=== PATIENT | male | born 1950 | race Caucasian/White ===

== ENCOUNTER 2018-06-21 16:51 | Outpatient (CLI) | payer MEDICARE, OTHER, SELFPAY ==
--- NOTE | 2018-06-21 14:25 | DI.RAD_ITS ---
SYMPTOM/DIAGNOSIS: LEFT KNEE PAIN, M25.562 LEFT KNEE: 06/21/18 Four views were obtained. There is marked narrowing of the medial tibial femoral joint with subchondral sclerosis of the adjacent bones. There is mild medial subluxation of the femur on the tibia. Very prominent hypertrophic changes of the bones of the knee noted. 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
--- NOTE | 2018-06-21 14:46 | DI.RAD_ITS ---
SYMPTOM/DIAGNOSIS: RIGHT KNEE PAIN, M25.561 RIGHT KNEE: 06/21/18 Four views were obtained. There is marked narrowing of the medial tibial femoral cartilaginous joint space and to a lesser degree the lateral tibial femoral cartilaginous joint space. There is mild medial subluxation of the femur on the tibia. There are marked subchondral sclerotic changes at the medial tibial femoral joint. Very prominent hypertrophic changes are seen involving all of the joints of the knee. 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
== END 2018-06-21 17:11 ==
PROVIDERS: PCP Family Medicine; Visit Provider Family Medicine
DX: M25.561 Pain in right knee (principal); M17.11 Unilateral primary osteoarthritis, right knee; M25.562 Pain in left knee; M17.12 Unilateral primary osteoarthritis, left knee
CPT/HCPCS: 73562

== ENCOUNTER 2018-07-05 10:09 | Outpatient (CLI) | payer MEDICARE, OTHER, SELFPAY | END 2018-07-05 10:29 | PROVIDERS: PCP Family Medicine; Referring Provider Family Medicine; Visit Provider Orthopaedic Surgery | DX: M17.0 Bilateral primary osteoarthritis of knee (principal) | CPT/HCPCS: 99201; 99214; 73560 ==

== ENCOUNTER 2019-06-21 11:56 | Outpatient (CLI) | payer MEDICARE, OTHER, SELFPAY ==
[2019-06-21 12:55] LABS: Abs Immature Grans 0.02 k/cumm (0.0-0.09); Absolute Basophil Count 0.02 k/cumm (0.0-0.2); Absolute Lymphocyte Count 2.05 k/cumm (1.2-3.4); Absolute Monocyte Count 0.49 k/cumm (0.11-0.7); Absolute Neutrophil Count 3.46 k/cumm (1.2-6.7); Basophils % 0.3; Eosinophils % 1.6; HCT 47.9 % (40.0-50.0); HGB 16.2 g/dL (13.5-17.5); Immature Grans % 0.3; Lymphocytes % 33.4; Mean Corp. HGB Concentration 33.8 g/dL (32.0-36.0); Mean Corpuscular Hemoglobin 31.9 pg (27.0-33.0); Mean Corpuscular Volume 94.3 fL (80-95); Mean Platelet Volume 10.1 fL (8.0-11.0); Neutrophils % 56.4; Platelet Count 261 x1000/uL (130-400); RBC 5.08 m/cumm (4.50-6.00); White Blood Cell Count 6.14 k/cumm (4.4-10.8)
[2019-06-21 14:04] LABS: ALT 34 U/L (16-63); AST 20 U/L (15-37); Alkaline Phosphatase 85 U/L (46-116); Anion Gap 7.9 mmol/L (3-11); BUN 16 mg/dL (7-18); Bilirubin, Total 0.6 mg/dL (0.2-1.0); CO2 29.1 mmol/L (21.0-32.0); CREATININE 0.95 mg/dL (0.70-1.30); Calcium 8.9 mg/dL (8.5-10.1); Chloride 105 mmol/L (98-107); Glucose 89 mg/dL (70-100); Potassium 4.7 mmol/L (3.5-5.1); Sodium 142 mmol/L (136-145)
[2019-06-21 14:09] LABS: ESR 9 mm/hr (1-20)
== END 2019-06-21 12:16 ==
PROVIDERS: PCP Family Medicine; Visit Provider Internal Medicine
DX: R10.9 Unspecified abdominal pain (principal); R50.9 Fever, unspecified
CPT/HCPCS: 36415; 80053; 85652; 85025

== ENCOUNTER 2019-06-25 01:43 | Outpatient (CLI) | payer MEDICARE, OTHER, SELFPAY ==
--- NOTE | 2019-06-25 09:51 | DI.US_ITS ---
EXAM: US ABDOMEN CLINICAL HISTORY: abdominal pain, R10.9 TECHNIQUE: Ultrasound performed using standard protocol. COMPARISON: No exams were available for comparison FINDINGS: The liver is mildly enlarged and shows increased echogenicity and decreased through transmission, con sistent with mild fatty infiltration. The spleen is normal in size and appearance. There is no bili humza dilatation or evidence of gallstones. The pancreas, kidneys and aorta are unremarkable. There i s no ascites. IMPRESSION: Mildly enlarged fatty liver.
== END 2019-06-25 02:03 ==
PROVIDERS: PCP Family Medicine; Visit Provider Internal Medicine
DX: R10.9 Unspecified abdominal pain (principal); K76.0 Fatty (change of) liver, not elsewhere classified; R16.0 Hepatomegaly, not elsewhere classified
CPT/HCPCS: 76700

== ENCOUNTER 2020-06-09 03:42 | Outpatient (CLI) | payer MEDICARE, OTHER, SELFPAY ==
[2020-06-09 12:53] LABS: Albumin 3.7 g/dL (3.4-5.0); Alkaline Phosphatase 104 U/L (46-116); Anion Gap 6.9 mmol/L (3-11); BUN 22 mg/dL (7-18); Bilirubin, Total 0.5 mg/dL (0.2-1.0); CO2 29.1 mmol/L (21.0-32.0); CREATININE 0.99 mg/dL (0.70-1.30); Calcium 8.3 mg/dL (8.5-10.1); Chloride 103 mmol/L (98-107); Glucose 107 mg/dL (74-106); Potassium 4.3 mmol/L (3.5-5.1); Sodium 139 mmol/L (136-145); Total Protein 6.8 g/dL (6.4-8.2)
[2020-06-09 13:09] LABS: ALT 28 U/L (16-63); AST 23 U/L (15-37)
== END 2020-06-09 04:02 ==
PROVIDERS: PCP Family Medicine; Visit Provider Family Medicine
DX: L71.8 Other rosacea (principal)
CPT/HCPCS: 36415; 80053

== ENCOUNTER 2021-11-20 21:41 | Outpatient (REF) | payer MEDICARE, OTHER, SELFPAY ==
[2021-11-22 10:57] LABS: COVID-19 RT-PCR UVMMC Result Negative (Negative)
== END 2021-11-20 21:42 | disposition home or self-care (01) ==
LOC: LBN 21:41
PROVIDERS: PCP Family Medicine; Visit Provider Physician Assistant Medical
DX: Z20.822 Contact with and (suspected) exposure to COVID-19 (principal); R05.8 Other specified cough
CPT/HCPCS: U0003

== ENCOUNTER 2022-03-26 18:53 | Outpatient (CLI) | payer MEDICARE, OTHER, SELFPAY ==
[2022-03-26 17:02] LABS: Abs Immature Grans 0.06 10^3/uL (0.0-0.06); Absolute Basophil Count 0.04 10^3/uL (0.0-0.2); Absolute Eosinophil Count 0.14 10^3/uL (0.0-0.7); Absolute Lymphocyte Count 2.34 10^3/uL (1.2-3.4); Absolute Monocyte Count 0.89 10^3/uL (0.1-0.8); Absolute Neutrophil Count 4.99 10^3/uL (1.2-6.7); Basophils % 0.5; Eosinophils % 1.7; HCT 45.5 % (40.0-50.0); HGB 15.6 g/dL (13.5-17.5); Immature Grans % 0.7; Lymphocytes % 27.7; MCHC 34.3 % (32.0-36.0); MCV 93 fL (80-95); MPV 10.1 fL (8.0-11.0); Monocytes % 10.5; Neutrophils % 58.9; Platelet Count 244 10^3/uL (130-400); RBC 4.87 10^6/uL (4.36-5.78); RDW 12.2 % (11.8-14.1); RDW-SD 42.4 fL; WBC 8.46 10^3/uL (4.4-10.8)
[2022-03-26 18:32] LABS: ALT 33 U/L (16-63); AST 23 U/L (15-37); Albumin 3.7 g/dL (3.4-5.0); Alkaline Phosphatase 96 U/L (46-116); Anion Gap 7.6 mmol/L (3-11); BUN 20 mg/dL (7-18); Bilirubin, Total 0.3 mg/dL (0.2-1.0); CO2 28.4 mmol/L (21.0-32.0); CREATININE 0.8 mg/dL (0.70-1.30); Chloride 105 mmol/L (98-107); Glucose 80 mg/dL (74-106); Lipase 78 U/L (73-393); Potassium 4.4 mmol/L (3.5-5.1); Sodium 141 mmol/L (136-145); Total Protein 7.1 g/dL (6.4-8.2)
== END 2022-03-26 18:54 | disposition home or self-care (01) ==
LOC: LBO 18:56
PROVIDERS: PCP Family Medicine; Visit Provider Physician Assistant
DX: R10.13 Epigastric pain (principal)
CPT/HCPCS: 36415; 80053; 83690; 85025

== ENCOUNTER → 2022-04-06 02:19 | Outpatient (CLI) | payer MEDICARE, OTHER, SELFPAY ==
--- NOTE | 2022-04-06 06:45 | DI.US_ITS ---
Exam(s) US ABDOMEN EXAM: US ABDOMEN INDICATION: epigastric pain, bloating, gas, R10.13 COMPARISON: US US ABDOMEN from 06/25/2019 TECHNIQUE: Ultrasound abdomen performed using standard protocol FINDINGS: Abdominal ultrasound was performed according to the usual protocol. The liver is normal in size and shape. No focal hepatic lesion seen. There is no evidence of cholelithiasis or biliary dilatation. No gallbladder wall thickening or peric holecystic fluid collection. Portal venous flow is hepatopetal. Pancreas appears intact as visualized. Spleen is unremarkable in appearance with no focal lesion. Kidneys are normal in size and shape. No renal mass, hydronephrosis, or nephrolithiasis. Abdominal aorta and IVC are of normal diameter. IMPRESSION: Negative abdominal ultrasound .
== END ==
PROVIDERS: PCP Family Medicine; Visit Provider Physician Assistant
DX: R10.13 Epigastric pain (principal)
CPT/HCPCS: 76700

== ENCOUNTER → 2022-05-07 00:32 | Outpatient (CLI) | payer MEDICARE, OTHER, SELFPAY ==
--- NOTE | 2022-05-07 07:00 | DI.CT_ITS ---
Exam(s) CT ABDOMEN PELVIS W EXAM: CT ABDOMEN PELVIS W CLINICAL HISTORY: epigastric abd pain,epigastric pain,r10.13,r19.8 TECHNIQUE: COMPARISON: No exams were available for comparison FINDINGS: CT examination of the abdomen and pelvis was performed with bolus infusion of 100 cc of Omnipaque 350 . Images obtained through the lung bases are unremarkable. The liver appears normal with no evidence of a focal mass. Spleen is unremarkable in appearance.. Gallbladder and bile ducts are unremarkable. Pancreas is unremarkable in appearance. Adrenals appear normal bilaterally. Kidneys appear normal with no evidence of renal mass, hydronephrosis, or nephrolithiasis. Unremarkab le bladder. There is no evidence of abdominal or pelvic adenopathy. Abdominal aorta is of normal diameter and no abnormality is seen involving major visceral branches.. Appendix is normal. No evidence diverticulitis or bowel obstruction. No significant abdominal wall hernia seen. Impression: Negative CT examination of the abdomen and pelvis. RADIATION DOSE DELIVERED: 1,251.69mGy.cm Total DLP 1,251.69mGy.cm Total DLP !Error CTDIvol DATA REPOSITORY: All CT scans at this facility are submitted to the National Radiology Data Registry (NRDR) Dose Index Registry (DIR) with the [employer] (ACR). RADIATION OPTIMIZATION: All CT scans at this facility use at least one of these dose optimization te chniques: automated exposure control; mA and/or kV adjustment per patient size (includes targeted exa ms where dose is matched to clinical indication); or iterative reconstruction.
[2022-05-07] MEDS: Barium Sulfate 2% W/V-Berry Smoothie 450 ML BTL PO ×2 (08:44→08:45)
[2022-05-07 08:56] LABS: CREATININE 0.9 mg/dL (0.70-1.30); Estimated GFR 91.88 (mL/min/1.73m2)
[2022-05-07] MEDS: Omnipaque 350 MG/ML 500 ML BTL-Imaging package IJ (10:48)
[2022-05-07] MEDS: Normal Saline Flush 10 ML SYR IVP (10:48)
== END ==
PROVIDERS: PCP Family Medicine; Visit Provider Family Medicine
DX: R10.13 Epigastric pain (principal); R19.8 Other specified symptoms and signs involving the digestive system and abdomen
CPT/HCPCS: 74177; 82565

== ENCOUNTER 2022-07-29 19:44 | Emergency (ER) | payer MEDICARE, OTHER, SELFPAY ==
[2022-07-29 19:52] VITALS: BP 136/73; PULSE 62; RESP 16; TEMP 36.5; O2SAT 97
--- NOTE | 2022-07-29 20:04 | ED.GENADUL_ITS ---
Discharge Plan Disposition Patient Disposition: Home Condition: Improving Discharge Details Chief Complaint: Sorethroat Clinical Impression: Pharyngitis, acute Primary Care Provider: Radha Thomas ED Provider: Kwame Pandey Home Meds and New Rx's Prescriptions: No Action No Known Home Meds Discharge Instructions Instructions: Pharyngitis (ED) Additional Instructions: May use lozenges, popsicles and liberal sips of fluids to maintain hydration and soothe your sore throat. Your rapid strep test and COVID test were negative. A confirming COVID test has been sent to the lab, you will receive a call if it is positive. Return to the ER for any acute concern. Medical Decision Making 72-year-old male presents from home with hours of onset acute sore throat. No other symptoms. Was not sure of his home COVID test results. In the ER rapid strep and viral swab obtained. Rapid strep test negative and rapid COVID test and influenza negative. Patient appropriate for discharge to home HPI General Mode of arrival: ambulatory . Date/Time Provider Initiated Documentation: 07/29/22 19:51 . Limitations to Documentation: no limitations . Information obtained by: patient . History of Present Illness 72 year old M presents to the emergency department with the chief complaint of Sore throat, described as moderate, Quality is described as dull and constant, and is localized to the mouth. Patient started experiencing this hour(s) and it has been constant. No relieving factors improve symptom(s), No exacerbating factors reported . Patient notes denies cough and fever/chills. Patient did receive the following treatments prior to arrival, none Related Data Home Medications Medication Instructions Recorded Confirmed Unknown [No Known Home Meds] 07/29/22 07/29/22 Allergies Allergy/AdvReac Type Severity Reaction Status Date / Time No Known Allergies Allergy Verified 07/29/22 19:58 General Stated Complaint: Sorethroat KAIDEN: 4 Review of Systems Narrative: 6 systems reviewed and otherwise negative PFSH All Active Problems (Updated 07/29/22 @ 20:35 by Kwame Pandey MD) Pharyngitis, acute (Acute) COVID-19 (Acute) 06/01/22 positive screening. 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) Rosacea (Acute) of face Seborrheic dermatitis (Acute 12/08/16) Epigastric pain (Acute) Penile adhesion, acquired (Acute) Medical History Carpal tunnel syndrome, bilateral Diverticula of colon (06/09/16) Spermatocele (02/03/16) Surgical History History of arthroscopy Status post tonsillectomy Family History Mother , age 82 Stroke Father , age 88 Personal history of malignant neoplasm Skin Dementia Sister Dementia Sister Dementia Social History Smoking/Tobacco Use Status: Never Smoking risk assessment performed?: Yes Alcohol Intake: never Drug use: Never Caregiver/Support person: No Household members: spouse Housing: house Number of Children: 2 number of grandchildren: 4 Communication Needs: None Do you need help understanding health information?: Rarely current occupation: works in [employer] Pets and animals: No Sexually active: Yes Do you think of yourself as: straight/heterosexual Current gender identity: male What is your relationship status?: How often do you talk on the phone with friends or family?: once per week How often do you get together with friends or relatives?: once per week Do you belong to any clubs or organized social groups?: no Panel score (0-1 are the most socially isolated patients): 1 Special mirella needs: No Seatbelt use: always Helmet use: Yes 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 Pleasant, well groomed, interactive. HEAD: Normocephalic, atraumatic ENT: Mucous membranes moist, oropharynx unremarkable, tympanic membranes clear bilaterally external ear exam unremarkable EYES: PERRL, EOMI NECK: Full ROM, no ASHIA, no menigismus CHEST/RESP: Nontender, clear to auscultation bilateral, no wheeze/rhonchi/rales CARDIOVASCULAR: RRR, no murmur, rub elijah. 2+ Rad pulse bilateral EXT: Full ROM, no edema, no rash Neuro: Grossly normal neurologic exam, conversant, interactive. Psych: Speech fluent, thoughts congruent, affect normal Course Vital Signs Vital signs: Vital Signs Temperature 36.5 C 07/29/22 19:52 Pulse 62 07/29/22 19:52 Respiratory Rate 16 07/29/22 19:52 Blood Pressure 136/73 07/29/22 19:52 Pulse Oximetry 97 07/29/22 19:52 Temperature 36.5 C 07/29/22 19:52 Temperature Source Temporal Artery Scan 07/29/22 19:52 Pulse 62 07/29/22 19:52 Respiratory Rate 16 07/29/22 19:52 Respiratory Effort 07/29/22 19:52 Blood Pressure 136/73 07/29/22 19:52 Blood Pressure Position Sitting 07/29/22 19:52 Pulse Oximetry 97 07/29/22 19:52 Oxygen Delivery Method Room Air 07/29/22 19:52 Oxygen Flow Rate 0 07/29/22 19:52 Pain Level 0 07/29/22 19:52
[2022-07-31 11:08] LABS: COVID-19 RT-PCR UVMMC Result Negative (Negative)
--- NOTE | 2022-08-01 09:06 | NUR.NOTE ---
left message for patient to call ED for covid results
== END 2022-07-29 21:11 | disposition home or self-care (01) ==
PROVIDERS: Physician Assistant; Emergency Provider Emergency Medicine; PCP Family Medicine
DX: J02.9 Acute pharyngitis, unspecified (principal); Z20.822 Contact with and (suspected) exposure to COVID-19
CPT/HCPCS: 87880; 99282; U0003; 87081

== ENCOUNTER 2022-10-20 18:45 | Emergency (ER) | payer MEDICARE, OTHER, SELFPAY ==
[2022-10-20] VITALS (45 sets, daily range): BP systolic 126–149; BP diastolic 70–88; PULSE 48–76; RESP 10–22; TEMP 36.9; O2SAT 93–99
--- NOTE | 2022-10-20 18:45 | DI.CT_ITS ---
Exam(s) CT THORAX CTA EXAM: CT THORAX CTA CLINICAL HISTORY: stabbing. tearing left chest pain, r/o dissection. TECHNIQUE: Imaging Protocol: Axial CT angiography was performed with multi-slice acquisition and mu lti-planar reconstructions as well as axial, coronal and sagittal MIP reconstructions. CONTRAST MATERIAL: Intravenous: Omnipaque 350 Contrast volume:100 ml COMPARISON: CT CT ABDOMEN PELVIS W from 05/07/2022 FINDINGS: Pulmonary Arteries: No evidence of filling defect to suggest pulmonary emboli. Tracheobronchial tree: Patent where visualized. Mediastinum and Cris: No dominant adenopathy or fluid collection. Pulmonary parenchyma: No consolidation or dominant measurable mass. Pleura: No effusion or pneumothorax. Heart: The heart is not dilated. Mild coronary artery calcifications are seen. Aorta: Thoracic aorta non-dilated. No aneurysm. No dissection. Minimal atherosclerotic changes. Upper abdomen: Unremarkable. Bones: Unremarkable for age. Tubes, Catheters, and Lines: None IMPRESSION: No acute abnormality. RADIATION DOSE DELIVERED: 545.6mGy.cm Total DLP DATA REPOSITORY: All CT scans at this facility are submitted to the National Radiology Data Registry (NRDR) Dose Index Registry (DIR) with the [employer] (ACR). RADIATION OPTIMIZATION: All CT scans at this facility use at least one of these dose optimization te chniques: automated exposure control; mA and/or kV adjustment per patient size (includes targeted exa ms where dose is matched to clinical indication); or iterative reconstruction.
--- NOTE | 2022-10-20 18:45 | RT.EKG_ITS ---
APPROVED REPORT Exam: Resting ECG Reason for Exam: chest pain Patient Location: E HR:55 bpm ECG Measurements Heart Rate 55 AXIS AR 168 P 144 QRSd 87 QRS -20 QT 417 T 144 QTc 401 Conclusion Sinus or ectopic atrial bradycardia...P axis (-45,135), rate< 60 Physician: no stemi, repol in ant/lat leads with minimal elevation less than 1mm
--- NOTE | 2022-10-20 19:01 | ED.GENADUL_ITS ---
Discharge Plan Disposition Patient Disposition: Home Discharge Details Clinical Impression: Chest pain Primary Care Provider: Radha Thomas ED Provider: Jorge L Alves Home Meds and New Rx's Prescriptions: No Action No Known Home Meds Discharge Instructions Instructions: Chest Pain (ED) Additional Instructions: At this time your imaging shows no evidence of significant abnormality. Your EKG shows no signs of heart attack, and your laboratory work-up is stable. Please follow-up closely with your primary care provider for reassessment. If you notice any worsening of your symptoms, or any new symptoms such as vomiting, diarrhea, fever, chills, shortness of breath, chest pain, numbness, weakness, or fainting , please return immediately to the emergency department for reevaluation. Please follow up with your primary care provider as soon as possible for reassessment and reevaluation. As always, it was a pleasure participating in your medical care today. Referrals: Radha Thomas MD [Primary Care Provider] - Medical Decision Making 72-year-old male with no significant past medical history except for eczema, rosacea, carpal tunnel, who presents today for evaluation of chest pain. Patient states that for the last 8 to 10 hours he has had mild left-sided chest discomfort which she describes as a stabbing/tearing sensation. It comes and goes. It only lasts a few seconds and then goes away for 30 to 40 minutes. It is not related to exertion. It is not related to deep breathing. There is no pleuritic component. He denies any vomiting or diarrhea. He denies any numbness tingling or weakness. He denies any family history of cardiac disease. No other particular aggravating or relieving factors. Physical exam demonstrates well-appearing male, minimal hypertension. He is low risk for cardiac etiology aside for his age and gender. Differential includes cardiac/ACS, less likely dissection however the complaint of the stabbing ripping/tearing sensation is certainly concerning and raises this on my differential. We will get CT imaging, give GI cocktail, monitor closely and reassess. 9 PM Laboratory work-up has returned, no white count bandemia or left shift. Electrolytes stable, lipase normal, troponin normal, bilirubin normal. proBNP is normal suggesting no signs of heart strain. CTA was performed and shows no evidence of dissection or other aneurysm or other abnormality. Patient is sleeping and resting comfortably after GI cocktail and aspirin. Pain has resolved. Symptoms appear inconsistent with ACS STEMI PE or dissection, however out of an abundance of precaution we will get a repeat troponin and EKG. Suspect potential esophageal or musculoskeletal component. Repeat EKG is normal. Reviewed EKGs demonstrates no STEMI. Repeat troponin normal. Patient feels well. Patient stable for discharge. Uncertain as to what the exact cause/etiology of the patient's symptoms, there may be a musculoskeletal component, or an esophageal spasm component. There is no evidence of acute life-threatening etiology at this time though. Patient feels comfortable going home. Patient will be discharged at this time with close follow-up with his primary care provider on an outpatient basis. Discussed red flags for which to return. I have extensively reviewed the treatment plan and discharge instructions with the patient. I have addressed all patient concerns at this time. The patient was made aware of what symptoms to monitor for that would warrant a return to the emergency department. Discussed the plan with the patient, they demonstrate verbal understanding and agreement with our assessment and plan at this time. The documentation in this chart was dictated using [employer] dictation software. Please excuse any dictation errors. FINDINGS: Pulmonary arteries: Normal. No pulmonary emboli. Aorta: Unremarkable. No aortic aneurysm. No aortic dissection. Lungs: Unremarkable. No consolidation. No masses. Pleural spaces: Unremarkable. No pneumothorax. No pleural effusion. Heart: Unremarkable. No cardiomegaly. No pericardial effusion. Lymph nodes: Unremarkable. No enlarged lymph nodes. Bones/joints: Unremarkable. No acute fracture. Soft tissues: Unremarkable. IMPRESSION: No acute findings. Thank you for allowing us to participate in the care of your patient. Dictated and Authenticated by: Mauro Collins MD 10/20/2022 8:20 PM Eastern Time ([place] & [place]) HPI General Date/Time Provider Initiated Documentation: 10/20/22 18:55 . HPI Narrative: 72-year-old male with no significant past medical history except for eczema, rosacea, carpal tunnel, who presents today for evaluation of chest pain. Patient states that for the last 8 to 10 hours he has had mild left-sided chest discomfort which she describes as a stabbing/tearing sensation. It comes and goes. It only lasts a few seconds and then goes away for 30 to 40 minutes. It is not related to exertion. It is not related to deep breathing. There is no pleuritic component. He denies any vomiting or diarrhea. He denies any numbness tingling or weakness. He denies any family history of cardiac disease. No other particular aggravating or relieving factors. Related Data Home Medications Medication Instructions Recorded Confirmed Unknown [No Known Home Meds] 07/29/22 10/20/22 Allergies Allergy/AdvReac Type Severity Reaction Status Date / Time No Known Allergies Allergy Verified 09/08/22 08:09 General Stated Complaint: Chest Pain KAIDEN: 3 Review of Systems All systems reviewed & are unremarkable except as noted in HPI and below PFSH All Active Problems (Updated 10/20/22 @ 22:36 by Jorge L Alves DO) Chest pain (Acute) COVID-19 (Acute) 06/01/22 positive screening. 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) Rosacea (Acute) of face Seborrheic dermatitis (Acute 12/08/16) Epigastric pain (Acute) Penile adhesion, acquired (Acute) Medical History Carpal tunnel syndrome, bilateral Diverticula of colon (06/09/16) Spermatocele (02/03/16) Surgical History History of arthroscopy Status post tonsillectomy Family History Mother , age 82 Stroke Father , age 88 Personal history of malignant neoplasm Skin Dementia Sister Dementia Sister Dementia Social History Smoking/Tobacco Use Status: Never Smoking risk assessment performed?: Yes Alcohol Intake: never Drug use: Never Substance use type: does not use Caregiver/Support person: No Household members: spouse Housing: house Number of Children: 2 number of grandchildren: 4 Communication Needs: None Do you need help understanding health information?: Rarely 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 [employer] Pets and animals: No Sexually active: Yes Do you think of yourself as: straight/heterosexual Current gender identity: male What is your relationship status?: How often do you talk on the phone with friends or family?: once per week How often do you get together with friends or relatives?: once per week Do you belong to any clubs or organized social groups?: no Panel score (0-1 are the most socially isolated patients): 1 Special mirella needs: No Seatbelt use: always Helmet use: Yes Drive intox or ride w/intox 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 3.ENT: Atraumatic external nose and ears. Moist MM. Neck: Symmetric, trachea midline, No thyromegaly. 4.CVS: +S1/S2, No murmurs or gallops. Peripheral pulses 2+ and equal in all extremities. Brisk capillary refill in all extremities. 5.RESP: Unlabored respiratory effort. Clear to auscultation bilaterally. No wheezes rales or rhonchi 6.GI: Soft, Nontender/Nondistended, No hepatosplenomegaly. No guarding or rebound. 7.MSK: Normocephalic/Atraumatic, Extremities w/o deformity or ttp No cyanosis or clubbing, Normal movement of all extremities 8.Skin: Warm, Dry. No rashes or lesions. 9.Neuro: lockstitch shoulder joiner II-XII grossly intact. Sensation grossly intact, no focal neurologic deficits. 10.Psych: (AAO) x3. Appropriate mood and affect Course Vital Signs Vital signs: Vital Signs Temperature 36.9 C 10/20/22 18:50 Pulse 76 10/20/22 18:50 Respiratory Rate 22 10/20/22 18:50 Blood Pressure 149/78 H 10/20/22 18:50 Pulse Oximetry 97 10/20/22 18:50 Temperature 36.9 C 10/20/22 18:50 Temperature Source Tympanic 10/20/22 18:50 Pulse 76 10/20/22 18:50 Respiratory Rate 19 10/20/22 18:55 Respiratory Effort Normal 10/20/22 18:55 Respiratory Depth Normal 10/20/22 18:55 Respiratory Pattern Normal 10/20/22 18:55 Blood Pressure 149/78 H 10/20/22 18:50 Blood Pressure Position Sitting 10/20/22 18:50 Pulse Oximetry 97 10/20/22 18:50 Oxygen Delivery Method Room Air 10/20/22 18:50 Oxygen Flow Rate 0 10/20/22 18:50 Pain Level 0 10/20/22 18:55
[2022-10-20 19:11] LABS: Abs Immature Grans 0.04 10^3/uL (0.0-0.06); Absolute Basophil Count 0.03 10^3/uL (0.0-0.2); Absolute Eosinophil Count 0.12 10^3/uL (0.0-0.7); Absolute Lymphocyte Count 2.82 10^3/uL (1.2-3.4); Absolute Monocyte Count 0.61 10^3/uL (0.1-0.8); Absolute Neutrophil Count 4.24 10^3/uL (1.2-6.7); Basophils % 0.4; Eosinophils % 1.5; HCT 47.7 % (40.0-50.0); HGB 15.8 g/dL (13.5-17.5); Immature Grans % 0.5; Lymphocytes % 35.9; MCH 31.7 pg (27.0-33.0); MCHC 33.1 % (32.0-36.0); MCV 96 fL (80-95); MPV 9.8 fL (8.0-11.0); Monocytes % 7.8; Neutrophils % 53.9; Platelet Count 245 10^3/uL (130-400); RBC 4.98 10^6/uL (4.36-5.78); RDW 12.6 % (11.8-14.1); RDW-SD 44.9 fL; WBC 7.86 10^3/uL (4.4-10.8)
[2022-10-20 19:24] LABS: PTT Activated 25.3 sec (21.5-31.9); Prothrombin Time 9.9 sec (9.3-11.0)
[2022-10-20 19:33] LABS: ALT 22 U/L (16-63); AST 17 U/L (15-37); Albumin 3.7 g/dL (3.4-5.0); Alkaline Phosphatase 90 U/L (46-116); Anion Gap 5.8 mmol/L (3-11); BUN 27 mg/dL (7-18); Bilirubin, Total 0.3 mg/dL (0.2-1.0); CO2 30.2 mmol/L (21.0-32.0); Calcium 8.9 mg/dL (8.5-10.1); Chloride 104 mmol/L (98-107); Estimated GFR 80.97 (mL/min/1.73m2); Glucose 100 mg/dL (74-106); Lipase 32 U/L (16-77); NT-proBNP 57 pg/mL (<300); Potassium 4.1 mmol/L (3.5-5.1); Sodium 140 mmol/L (136-145); Total Protein 7.1 g/dL (6.4-8.2); Troponin I < 50 ng/L (<or=60)
[2022-10-20] MEDS: Omnipaque 350 MG/ML 100 ML BTL IJ (19:54)
[2022-10-20] MEDS: Normal Saline - Diluent 50 ML VIAL IJ (19:55)
[2022-10-20] MEDS: Aspirin 81 MG CHEW 324 MG CH (20:00)
[2022-10-20] MEDS: Normal Saline 500 ML IV (20:13)
--- NOTE | 2022-10-20 20:21 | DI.VRAD_ITS ---
PROCEDURE INFORMATION: Exam: CTA Chest With Contrast Exam date and time: 10/20/2022 7:46 PM Age: 72 years old Clinical indication: Pain; Left-sided; Additional info: Tearing left chest pain, R/O dissection TECHNIQUE: Imaging protocol: Computed tomographic angiography of the chest with contrast. 3D rendering (Not supervised by radiologist): MIP and/or 3D reconstructed images were created by the technologist. Radiation optimization: All CT scans at this facility use at least one of these dose optimization techniques: automated exposure control; mA and/or kV adjustment per patient size (includes targeted exams where dose is matched to clinical indication); or iterative reconstruction. Contrast material: OMNI 350; Contrast volume: 100 ml; Contrast route: INTRAVENOUS (IV); COMPARISON: CT ABDOMEN PELVIS W 05/07/2022 10:45 AM FINDINGS: Pulmonary arteries: Normal. No pulmonary emboli. Aorta: Unremarkable. No aortic aneurysm. No aortic dissection. Lungs: Unremarkable. No consolidation. No masses. Pleural spaces: Unremarkable. No pneumothorax. No pleural effusion. Heart: Unremarkable. No cardiomegaly. No pericardial effusion. Lymph nodes: Unremarkable. No enlarged lymph nodes. Bones/joints: Unremarkable. No acute fracture. Soft tissues: Unremarkable. IMPRESSION: No acute findings. Dictated and Authenticated by: Mauro Collins MD. Ordering:ELENA Coats MD
--- NOTE | 2022-10-20 21:45 | RT.EKG_ITS ---
APPROVED REPORT Exam: Resting ECG Reason for Exam: chest pain Patient Location: E HR:53 bpm ECG Measurements Heart Rate 53 AXIS NH 169 P 68 QRSd 92 QRS 5 QT 440 T 66 QTc 415 Conclusion Sinus bradycardia...rate< 60 Physician: no stemi, unchanged from prior
[2022-10-20 22:34] LABS: Troponin I < 50 ng/L (<or=60)
== END 2022-10-20 23:05 | disposition home or self-care (01) ==
PROVIDERS: Emergency Provider Student in an Organized Health Care Education/Training Program; PCP Family Medicine
DX: R07.89 Other chest pain (principal); I10 Essential (primary) hypertension
CPT/HCPCS: 36415; 71275; 80053; 83690; 93005; 96360; 99285; 83880; 84484; 85025; 85610; 85730; 93010; J3490

== ENCOUNTER 2023-08-19 13:38 | Outpatient (CLI) | payer MEDICARE, OTHER, SELFPAY ==
--- OUTSIDE RECORDS SUMMARY | 2023-08-19 13:41 | XMS_ITS | Continuity of Care Document ---
Author Name Unknown Organization [facility] Occupationa l Health Address [address] [place] [id number] Encounter [facility] NBR [id number] Date(s): 05/17/22 - 05/17/22 [facility] Occupational Health [address] [place] [id number] Discharge Disposition: Home or Self Care Assessment and Plan Future Appointments
[2023-08-19 14:35] LABS: Anion Gap 3.3 mmol/L (3-11); BUN 18 mg/dL (7-18); CO2 31.7 mmol/L (21.0-32.0); CREATININE 0.9 mg/dL (0.70-1.30); Calcium 8.8 mg/dL (8.5-10.1); Calculated LDL 92 mg/dL (<100); Chloride 102 mmol/L (98-107); Cholesterol 170 mg/dL (<200); Estimated GFR 91.31 (mL/min/1.73m2); Glucose 100 mg/dL (74-106); HDL Cholesterol 58 mg/dL (40-60); Potassium 3.9 mmol/L (3.5-5.1); Sodium 137 mmol/L (136-145); Triglyceride 103 mg/dL (<150)
== END 2023-08-19 13:39 | disposition home or self-care (01) ==
LOC: LBO 13:39
PROVIDERS: PCP Family Medicine; Visit Provider Family Medicine
DX: Z13.6 Encounter for screening for cardiovascular disorders (principal); Z13.1 Encounter for screening for diabetes mellitus
CPT/HCPCS: 36415; 80048; 80061

== ENCOUNTER → 2023-10-05 02:09 | Outpatient (CLI) | payer MEDICARE, OTHER, SELFPAY ==
--- NOTE | 2023-10-05 07:45 | DI.MRI_ITS ---
Exam(s) MR IAC BRAIN WO/W EXAM: MR IAC BRAIN WO/W CLINICAL HISTORY: Asymmetrical hearing loss,h90.3. TECHNIQUE: Multiplanar multisequence MRI of the brain and internal auditory canals was performed. CONTRAST MATERIAL: IV Contrast: 20 mL of Dotarem contrast administered. COMPARISON: No exams were available for comparison FINDINGS: VENTRICLES AND EXTRA AXIAL SPACES: Normal in size and morphology for the patient's age. HEMORRHAGE: None. CEREBRAL PARENCHYMA: No focus of restricted diffusion to suggest acute infarct. No space-occupying le tyson identified. There are multiple areas of hyperintense signal seen in the white matter most consis tent with chronic microvascular ischemic disease. MIDLINE SHIFT: None. BRAINSTEM/CEREBELLUM: Normal. CALVARIUM: Normal. ENHANCEMENT: No suspicious enhancement identified. VISUALIZED PARANASAL SINUSES/MASTOIDS: There is a small amount of fluid in the left mastoid air cells . The remaining visualized paranasal sinuses and right mastoid air cells are clear. GRAND TRAVERSE OF ALVARENGA: Normal flow void. PITUITARY GLAND: Unremarkable. IAC/CP ANGLE: The internal auditory canals are within normal limits. The cerebellar pontine angles ar e unremarkable. No enhancing lesions are seen. Visualized portion of the facial nerves appear within normal limits. OTHER FINDINGS: None. IMPRESSION: 1. No evidence of a mass or enhancing lesion in the IAC or cerebellopontine angle. 2. Age-appropriate cerebral atrophy and chronic microvascular ischemic disease. 3. No evidence of an acute infarct. 4. Small amount of fluid seen in the left mastoid air cells which may represent a mild mastoiditis. DATA REPOSITORY:
[2023-10-05] MEDS: Gadoterate meglumine 20 ML SYRINGE IVP (13:40)
[2023-10-05] MEDS: Normal Saline Flush 10 ML SYR IVP (13:42)
== END ==
PROVIDERS: PCP Family Medicine; Visit Provider Registered Nurse Maternal Newborn
DX: H90.3 Sensorineural hearing loss, bilateral (principal)
CPT/HCPCS: 70553

== ENCOUNTER 2024-04-23 13:29 | Outpatient (CLI) | payer MEDICARE, OTHER, SELFPAY ==
[2024-04-23 12:53] LABS: Calculated LDL 93 mg/dL (<100); Cholesterol 173 mg/dL (<200); Estimated GFR 79.97 (mL/min/1.73m2); HDL Cholesterol 52 mg/dL (40-60); Triglyceride 144 mg/dL (<150)
== END 2024-04-23 13:30 | disposition home or self-care (01) ==
LOC: LBO 13:29
PROVIDERS: Registered Nurse Maternal Newborn; PCP Family Medicine; Visit Provider Family Medicine
DX: H90.3 Sensorineural hearing loss, bilateral (principal); Z13.6 Encounter for screening for cardiovascular disorders
CPT/HCPCS: 36415; 80061; 82565

== ENCOUNTER 2024-09-12 22:12 | Outpatient (REF) | payer MEDICARE, OTHER, SELFPAY ==
[2024-09-13 22:39] LABS: PSA, Screening 0.9 ng/mL (<=6.5)
[2024-09-13 23:17] LABS: Hepatitis C Ab w Rflx HCV PCR Negative (Negative)
== END 2024-09-12 22:13 | disposition home or self-care (01) ==
LOC: LBN 22:12
PROVIDERS: PCP Family Medicine; Visit Provider Nurse Practitioner Family
DX: Z11.59 Encounter for screening for other viral diseases (principal); Z12.5 Encounter for screening for malignant neoplasm of prostate; Z20.828 Contact with and (suspected) exposure to other viral communicable diseases; G89.29 Other chronic pain; M25.562 Pain in left knee; H90.3 Sensorineural hearing loss, bilateral; M25.561 Pain in right knee
CPT/HCPCS: 84153; 86803

== ENCOUNTER 2024-09-13 10:46 | Outpatient (CLI) | payer MEDICARE, OTHER, SELFPAY ==
--- NOTE | 2024-09-13 15:01 | DI.RAD_ITS ---
Exam(s) XR KNEE RT 3V AP,LAT,RAI EXAM: XR KNEE RT 3V AP,LAT,RAI CLINICAL HISTORY: bilat knee pain,m25.561,m26.562. TECHNIQUE: 2D digital imaging was performed of the right knee. Three views obtained. AP, lateral an d PA tunnel views were obtained. COMPARISON: CR XR knee RT 3V AP,lat,rai from 06/21/2018 FINDINGS: BONES: No acute fracture is present. No bony destructive lesion is seen. JOINTS: There are marked arthritic changes in the right knee involving all 3 joint compartments shantal cterized by joint space narrowing and osteophytes. There is [id number] articulation in the femoral tibial joint. No joint effusion is seen. SOFT TISSUE: Normal. IMPRESSION: Marked arthrosis of the right knee involving all 3 joint compartments. DATA REPOSITORY: RADIATION DOSE DELIVERED:
--- NOTE | 2024-09-13 15:01 | DI.RAD_ITS ---
Exam(s) XR KNEE LT 3V AP,LAT,RAI EXAM: XR KNEE LT 3V AP,LAT,RAI CLINICAL HISTORY: bilat knee pain,m25.561,m26.562. TECHNIQUE: 2D digital imaging was performed of the left knee. Three images were obtained. AP, late ral and PA tunnel views were obtained. COMPARISON: CR XR knee LT 3V AP,lat,rai from 06/21/2018 FINDINGS: BONES: No acute fracture is present. No bony destructive lesion is seen. 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 JOINTS: There are marked degenerative changes seen in the left knee involving all 3 joint compartment s characterized by joint space narrowing and osteophytes. The findings are most marked in the medial femoral tibial joint. There is bone on bone in the medial femoral tibial joint. No joint effusion is seen. There are osseous densities which appear at the superior aspect of the joint which may repre sent loose bodies. There is a small joint effusion. SOFT TISSUE: Normal. IMPRESSION: Marked arthrosis of the left knee. DATA REPOSITORY: RADIATION DOSE DELIVERED:
== END 2024-09-13 11:06 ==
PROVIDERS: PCP Family Medicine; Visit Provider Family Medicine
DX: M17.0 Bilateral primary osteoarthritis of knee (principal)
CPT/HCPCS: 73562

== ENCOUNTER 2024-11-08 14:58 | Outpatient (CLI) | payer MEDICARE, OTHER, SELFPAY ==
--- NOTE | 2024-11-08 10:00 | DI.RAD_ITS ---
Exam(s) XR STANDING ALIGNMENT EXAM: XR STANDING ALIGNMENT CLINICAL HISTORY: TKR Planning. TECHNIQUE: 2D digital imaging was performed. Four images were obtained. COMPARISON: CR XR KNEE RT 3V AP,LAT,RAI from 09/13/2024 CR XR KNEE LT 3V AP,LAT,RAI from 09/13/2024 FINDINGS: BONES: The hips are well maintained. There are marked degenerative changes seen in the knee characte rized by joint space narrowing and osteophytes. In the right knee, there is marked joint space narro wing both medially and laterally. Osteophytes are also seen medially and laterally. In the left kne e, there is marked narrowing of the medial femoral tibial joint space. Osteophytes are seen both med ially and laterally. The right ankle is unremarkable. There is mild narrowing of the medial aspect of the left ankle joint.There is no significant leg length discrepancy. SOFT TISSUE: Normal. IMPRESSION: There is marked osteoarthritis of the knees, right greater than left. DATA REPOSITORY: RADIATION DOSE DELIVERED:
== END 2024-11-08 14:59 | disposition home or self-care (01) ==
LOC: DIORS 15:01
PROVIDERS: PCP Family Medicine; Referring Provider Family Medicine; Visit Provider Student in an Organized Health Care Education/Training Program
DX: M17.11 Unilateral primary osteoarthritis, right knee; M17.12 Unilateral primary osteoarthritis, left knee
CPT/HCPCS: 99214; 77073

== ENCOUNTER 2025-01-18 16:27 | Outpatient (CLI) | payer MEDICARE, OTHER, SELFPAY ==
--- NOTE | 2025-01-18 16:15 | RT.EKG_ITS ---
APPROVED REPORT Exam: Resting ECG Reason for Exam: Pre Op Patient Location: O HR:60 bpm ECG Measurements Heart Rate 60 AXIS PA 169 P 36 QRSd 86 QRS 10 QT 405 T 63 QTc 405 Conclusion Sinus rhythm...normal P axis, V-rate 50- 99 Normal Electrocardiogram
== END 2025-01-18 16:28 | disposition home or self-care (01) ==
LOC: DI.CM 16:27
PROVIDERS: PCP Family Medicine; Visit Provider Family Medicine
DX: Z01.818 Encounter for other preprocedural examination (principal)
CPT/HCPCS: 93010

== ENCOUNTER 2025-01-18 16:55 | Outpatient (CLI) | payer MEDICARE, OTHER, SELFPAY ==
[2025-01-18 17:06] LABS: HCT 43.5 % (40.0-50.0); MCH 32.3 pg (27.0-33.0); MCHC 34.5 % (32.0-36.0); MCV 94 fL (80-95); MPV 10.3 fL (8.0-11.0); Platelet Count 213 10^3/uL (130-400); RBC 4.65 10^6/uL (4.36-5.78); RDW 12.2 % (11.8-14.1); RDW-SD 42.4 fL
[2025-01-18 17:35] LABS: BUN 18 mg/dL (7-18); CREATININE 0.9 mg/dL (0.70-1.30); Calcium 8.6 mg/dL (8.5-10.1); Chloride 104 mmol/L (98-107); Estimated GFR 90.74 (mL/min/1.73m2); Glucose 93 mg/dL (74-106); Potassium 4.1 mmol/L (3.5-5.1); Sodium 139 mmol/L (136-145)
== END 2025-01-18 16:56 | disposition home or self-care (01) ==
PROVIDERS: PCP Family Medicine; Visit Provider Student in an Organized Health Care Education/Training Program
DX: Z01.818 Encounter for other preprocedural examination (principal); M17.11 Unilateral primary osteoarthritis, right knee
CPT/HCPCS: 36415; 80048; 85027

== ENCOUNTER 2025-02-04 02:06 | Outpatient (CLI) | payer MEDICARE, OTHER, SELFPAY | END 2025-02-04 02:07 | disposition home or self-care (01) | LOC: LBO 02:06 | PROVIDERS: PCP Family Medicine; Visit Provider Student in an Organized Health Care Education/Training Program | DX: Z01.818 Encounter for other preprocedural examination (principal); M17.11 Unilateral primary osteoarthritis, right knee | CPT/HCPCS: 99024 ==

== ENCOUNTER 2025-02-12 07:34 | Day surgery (SDC) | payer MEDICARE, OTHER, SELFPAY ==
--- NOTE | 2025-02-11 18:08 | W.ANESPRE ---
General Info Date of Service Date Performed: 02/12/25 Height: 5 ft 9.25 in Weight: 95.254 kg Body Mass Index (BMI): 30.7 Surgical Procedure: Operation Date: 02/12/25 09:25 Proposed Procedure Side Surgeon p Knee Total Arthroplasty Right Ernie Martínez MD Meds Allergies and Home Medications Allergies Allergy/AdvReac Type Severity Reaction Status Date / Time No Known Allergies Allergy Verified 02/12/25 07:56 Home Medication ?Medication ?Instructions ?Recorded acetaminophen 500 mg tablet 1,000 mg (2 x 500 mg) PO Q8H PRN 02/12/25 pain #90 tabs aspirin 81 mg tablet,delayed 81 mg PO BID 30 days #60 tabs 02/12/25 release celecoxib 200 mg capsule (Celebrex) 200 mg PO BID PRN #60 caps 02/12/25 dexamethasone 4 mg tablet 4 mg PO DAILY #2 tabs 02/12/25 docusate sodium 100 mg capsule 100 mg PO BID #28 caps 02/12/25 (Colace) gabapentin 300 mg capsule 300 mg PO QHS #14 caps 02/12/25 oxycodone 5 mg tablet 5 mg PO Q4H PRN #18 tabs 02/12/25 pantoprazole 40 mg tablet,delayed 40 mg PO DAILY #14 tabs 02/12/25 release Current Visit Medications: Current Medications Generic Name Dose Route Start Last Admin Trade Name Freq PRN Reason Stop Dose Admin Acetaminophen 1,000 mg 02/12/25 06:00 Acetaminophen 500 Mg Tab PO 02/12/25 23:59 PREOP KATIANA Celecoxib 400 mg 02/12/25 06:00 Celecoxib 200 Mg Cap PO 02/12/25 23:59 PREOP KATIANA Gabapentin 300 mg 02/12/25 06:00 Gabapentin 300 Mg Cap PO 02/12/25 23:59 PREOP KATIANA Ringer's Solution 1,000 mls @ 80 mls/hr 02/12/25 06:00 IV 02/12/25 23:59 INFUSION KATIANA Cefazolin Sodium/Dextrose 2 gm in 50 mls @ 100 mls/hr 02/12/25 06:00 Ancef Duplex IVPB 02/12/25 23:59 PREOP KATIANA Tranexamic Acid/Sodium Chloride 1,000 mg in 100 mls @ 600 mls/hr 02/12/25 06:00 IVPB 02/12/25 23:59 PREOP KATIANA IV Miscellaneous Supplies 1 each 02/12/25 06:00 Iv Access IV 02/12/25 23:59 DIRECTED KATIANA Sodium Chloride 0 ml 02/12/25 06:00 Normal Saline Flush 10 Ml Syr IV 02/12/25 23:59 PRN PRN Sodium Chloride 0 ml 02/12/25 06:00 Normal Saline 10 Ml Vial IJ 02/12/25 23:59 DIRECTED PRN Sterile Water 0 ml 02/12/25 06:00 Water,Injection,Sterile 10 Ml Vial IJ 02/12/25 23:59 DIRECTED PRN PFSH Active Problems Active Problems: Problem Status Onset Code Degenerative joint disease of right knee Chronic M17.11 Osteoarthritis of knees, bilateral Chronic M17.0 Asymmetrical sensorineural hearing loss Acute H90.3 Penile adhesion, acquired Acute N47.8 Rosacea Acute L71.9 Medical History Medical History Seborrheic dermatitis (12/08/16) 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) Diverticula of colon (06/09/16) Spermatocele (02/03/16) Carpal tunnel syndrome, bilateral Surgical History Surgical History History of arthroscopy Status post tonsillectomy Tobacco Smoking/Tobacco Use Status: Never Passive smoking exposure: Yes Alcohol Alcohol Intake: never Substance Use Substance use: Never Substance use type: does not use Vital Signs and Lab Results Vital Signs Most Recent Vital Signs in EMR: Temp Pulse Resp BP Pulse Ox 36.7 C 58 L 17 133/70 97 02/12/25 07:56 02/12/25 07:56 02/12/25 07:56 02/12/25 07:56 02/12/25 07:56 Lab Results Complete Blood Count: WBC, (4.4-10.8) 6.70 10^3/uL 01/18/25, 16:55 RBC, (4.36-5.78) 4.65 10^6/uL 01/18/25, 16:55 Hgb, (13.5-17.5) 15.0 g/dL 01/18/25, 16:55 Hct, (40.0-50.0) 43.5 % 01/18/25, 16:55 Plt Count, (130-400) 213 10^3/uL 01/18/25, 16:55 Complete Metabolic Panel: Sodium, (136-145) 139 mmol/L 01/18/25, 16:55 Potassium, (3.5-5.1) 4.1 mmol/L 01/18/25, 16:55 Chloride, (98-107) 104 mmol/L 01/18/25, 16:55 Carbon Dioxide, (21.0-32.0) 28.0 mmol/L 01/18/25, 16:55 BUN, (7-18) 18 mg/dL 01/18/25, 16:55 Creatinine, (0.70-1.30) 0.9 mg/dL 01/18/25, 16:55 Est GFR (CKD-EPI 2020), (mL/min/1.73m2) 90.74 01/18/25, 16:55 Calcium, (8.5-10.1) 8.6 mg/dL 01/18/25, 16:55 Glucose, (74-106) 93 mg/dL 01/18/25, 16:55 Anesthesia Assessment and Plan Anesthesia History Personal History: Unknown Anesthesia History Family History: No Family History of Anesthesia Complications Exercise Tolerance Exercise Tolerance: Metabolic Equivalents>4 Cardiac & Pulmonary Exam Cardiac Exam: Normal S1/S2 Heart Sounds Pulmonary Exam: Clear Bilateral Breath Sounds Implantable Cardiac Device Does patient have a Pacemaker or an ICD?: No Airway Exam Known Difficult Airway: No Mallampati Class: 4 Mouth Opening: Normal (> 3cm) Thyromental Distance: Greater than 3 cm Neck Range of Motion: Full ROM Neck Circumference: Normal Teeth Condition: Normal Dentition ASA Classification ASA Score: ASA 1 Emergency Case?: No NPO Status NPO Status: NPO Clears >2 hours, Solids >8 hours Anesthesia Plan Resuscitation Status: Full Code Anesthesia Technique: Spinal Anesthesia Airway Planned: Natural Airway Pain Management: Surgeon and patient request nerve block Monitors Used: Standard Monitors Preoperative Comments:: 74 yo male for TKA. Sig PMHx: Never smoker. No home meds. No major issues. Rare/GERD ECG: sinus. Previous Anes: - spermetocelectomy, no meds? - colo, no sedation. Discussed spinal vs GA, would like spinal and to be awake. HE understands that spinals can fail or not last long enough, and that general anesthesia is always the backup.
[2025-02-12] VITALS (19 sets, daily range): BP systolic 91–153; BP diastolic 57–72; PULSE 52–61; RESP 7–19; TEMP 36.3–36.7; O2SAT 95–99; BMI 30.7
--- NOTE | 2025-02-12 07:17 | W.PM.DSUDISC ---
Date of service: 02/12/25 Discharge Plan Disposition Patient Disposition: Home Condition: Good Discharge Details Reason For Visit: Right knee DJD Attending Provider: Ernie Martínez Primary Care Provider: Radha Thomas Home Meds and New Rx's Prescriptions: New celecoxib [Celebrex] 200 mg capsule 200 mg PO BID PRNQty: 60 0RF Rx Instructions: Take one tablet twice daily for pain and inflammation aspirin 81 mg tablet,delayed release (DR/EC) 81 mg PO BID 30 Days Qty: 60 0RF acetaminophen 500 mg tablet 1,000 mg PO Q8H PRN Qty: 90 0RF Rx Instructions: Take two tablets up to every 8 hours as needed for pain pantoprazole 40 mg tablet,delayed release (DR/EC) 40 mg PO DAILY Qty: 14 0RF dexamethasone 4 mg tablet 4 mg PO DAILY Qty: 2 0RF Rx Instructions: Take one tablet once daily for two days docusate sodium [Colace] 100 mg capsule 100 mg PO BID Qty: 28 0RF gabapentin 300 mg capsule 300 mg PO QHS Qty: 14 0RF Rx Instructions: Take one tablet at bedtime oxycodone 5 mg tablet 5 mg PO Q4H PRNQty: 18 0RF Rx Instructions: Take one tablet up to every 4 hours as needed for severe postoperative pain Discharge Instructions Additional Instructions: Total Knee Discharge Instructions Activity: The most important activity is to walk and to work on gentle motion (both flexion and extension). You should try to take short walks a few times a day. It is important that when resting you work on keeping the knee straight. Avoid putting a pillow behind the knee as this will encourage flexion. Work on range of motion exercises as provided by Physical Therapy. - Start outpatient physical therapy within 2 weeks. - You should wear the SOBIA hose on both legs for 2 weeks. You may remove these at night. You may also use any compression sock in place of the SOBIA hose. - Utilize [employer] to review exercises, see videos on exercises and obtain basic information pertaining to your surgery and your recovery. Dressing: Remove the Clyde wrap by 2 days after your surgery and put on the SOBIA stocking given to you from the hospital. Keep the surgical dressing (underneath the CLYDE wrap) in place for at least one week. After the first week it may be removed and replaced with light gauze and tape or nothing. The wound and dressing may get wet after 3 days but avoid soaking the dressing or otherwise it will need to be changed. Many people prefer covering the dressing with cling wrap (saran wrap) to minimize it from getting soaked. If it gets wet, just pat dry. If it starts to peel off then it will need to be changed. Medications: - You should take Tylenol and anti-inflammatory Celebrex as your primary pain control medications. If the Celebrex is too expensive or not covered, please call the office for another alternative (Advil/Ibuprofen or Naproxen/Aleve) - You have been prescribed a stronger pain medication Oxycodone for breakthrough pain, take as needed as prescribed. - You have also been prescribed a stomach acid reduction agent Pantoprozole to help reduce stomach acid and reflux. - You have been prescribed Gabapentin to take at night for restlessness and nerve pain. - You will be taking Aspirin 81mg twice a day for DVT prevention unless instructed otherwise. - You have also been prescribed Decadron to take to control post-operative nausea and pain. You will start this tomorrow. - If you have constipation you should take Colace (which has been prescribed) or Miralax (which is available [id number]). It takes most people 3-4 days to have a bowel movement. Follow-up: 2 weeks If you have any acute concerns or questions, please do not hesitate to contact the office at [phone]. You may contact Dr. Martínez with any questions after hours through the hospital at [phone] or on his cell phone at [phone]. Referrals: Ernie Martínez MD [ [facility] STAFF PHYSICIAN, Orthopaedic Surgical] Equipment/Supplies: Walker Activity:: Elevate Remove Dressings/Wound Care:: Do Not Remove Shower/Bathe:: Cover Diet:: As Tolerated Discharge Orders Discharge Orders: Discharge Order (Routine); Ordered 02/12/25 Ordered By: Precious Shah
[2025-02-12] MEDS: Lactated Ringers 1,000 ML 80 ML IV (08:01)
[2025-02-12] MEDS: Celecoxib 200 MG CAP 400 MG PO (08:19)
[2025-02-12] MEDS: Acetaminophen 500 MG TAB 1000 MG PO (08:19)
[2025-02-12] MEDS: Gabapentin 300 MG CAP PO (08:20)
--- NOTE | 2025-02-12 08:44 | ANES.NERVE_ITS ---
Nerve Block Single Injection Procedure Date and Time Date Performed: 02/12/25 Procedure Start: 08:38 Location Where Procedure Performed Procedure Location: Day Surgery Unit Reason Performed: Postoperative Analgesia Requesting Provider: Ernie Martínez Timeout Performed Timeout Performed: Yes Monitoring Used ECG, Blood Pressure and SpO2 Sterility Sterility: Hand Hygiene, Surgical Cap, Surgical Mask, Sterile Gloves and Chlorhexidine Sedation Given During Procedure Sedation Given (Indicate Dose Given): No Sedation given Patient Mental Status Patient Mental Status: Awake Nerve Block 1st Nerve Block: Laterality: Right Block Type: Adductor Canal Ultrasound Image Saved?: Yes Needle / Catheter Used: 100mm SonoPlex II Local Anesthetic Bolus (Indicate Dose Given): Lidocaine used for local infiltration of skin, Injected in 3-5ml increments after negative blood aspiration and Bupivacaine 0.25% Dose:: 11 mL Additives (Indicate Dose Given): None Ultrasound: Sterile probe cover and gel used Nerve Stimulator: Supplement to Ultrasound use and No twitch or parast hesia noted < 0.5 mA (<0.8) Paresthesia: None Procedure Tolerated: No Complications Procedure Outcome: Successful Performed By: Avila Maxwell
[2025-02-12] MEDS: ceFAZolin 2 GM/50 ML BAG IVPB (09:25)
[2025-02-12] MEDS: TRANEXAMIC ACID/SOD. CHL. 1,000 MG/100 ML BAG 600 MG IVPB (09:29)
--- NOTE | 2025-02-12 11:00 | W.PM.OP ---
Operative Note Operative Note PRE-OP DIAGNOSIS: Right Knee Osteoarthritis POST-OP DIAGNOSIS: same PROCEDURE: Right Total Knee Replacement with Intraoperative Navigation SURGEON: Ernie Martínez SEMI TRUCK DRIVER: Precious Shah ANESTHESIA TYPE: Spinal Refer to Anesthesia Record ESTIMATED BLOOD LOSS: 100 PATHOLOGY: none sent TOURNIQUET TIME: 0 COMPLICATIONS: None Patient was transported to: PACU Patient's condition: stable Implants: 1. Depuy Attune Cementless Cruciate Retaining Femoral Component, Size 8 2. Depuy Attune Cementless Fixed Bearing Tibial Component, Size 7 3. Depuy Attune 8x6mm CR/FB Poly Indications: I have seen Yo in clinic for symptoms of RIGHT knee arthritis, confirmed with radiographic findings. He has exhausted nonoperative methods and was having significant limitations in daily function and desired better function and less pain. I discussed the technical details of a knee replacement. I explained the risks of the procedure to include, but not limited to, bleeding, infection, pain, stiffness, fracture, damage to nerves and vessels, damage to muscles and tendons, loosening, need for repeat procedure, blood clot and cardiopulmonary demise. Despite these risks, Yo elected to proceed. Findings: There was significant signs of arthritis throughout the knee with large osteophytes throughout and notable loss of cartilage and eburnation of bone in all 3 compartments except for the majority of the patella.. Procedure Description: Yo was greeted in the preoperative holding area where the correct side was identified and marked. The consent was reviewed with the patient and signed. The history and physical was updated. All questions were answered. Preoperative mediacations were administered: Acetaminophen 1000mg, Celebrex 400mg, and Gabapentin 300mg. An adductor canal block was then administered by the anesthesia team in the DSU. Yo was taken back to the operating room. A spinal anesthestic was then administered. The patient was placed into the supine position on the operating room table. Posts were placed for positioning during the procedure. All bony prominences were well padded. Prophylactic antibiotics in the form of Cefazolin were administered. 1g of Tranxemic Acid was given intravenously within 30 minutes of incision. The right leg was then prepped with Chloraprep and draped in a standard fashion with impervious stockinette. A second prep with Chloraprep was performed prior to application of Iodine impregnated skin protection. A timeout to confirm correct identity, side and site, procedure, allergies, anesthesia, and medical concerns was performed. With the knee in some flexion, a midline incision was made overlying the knee. Full thickness skin flaps were raised once the extensor mechanism was encountered. These were raised medially and laterally. Any bleeding was controlled with electrocautery. Once the extensor mechanism was fully exposed, a medial parapatellar arthrotomy was performed in a flexed position. All bleeding from the arthrotomy and the geniculate arteries was coagulated. A medial subperiosteal peel was performed with electrocautery to the midcoronal plane. Due to the significant varus deformity the entire medial tibial plateau was exposed. The fat pad was removed while keeping the patellar tendon protected. The anterior distal femur synovium was removed for later visualization. The ACL and PCL were resected and the anterior horn of the lateral meniscus was transected. The knee was then flexed with the patella everted. Large osteophytes from the tibia were removed. Large osteophytes from the femur were removed. A single starting pin was then placed 1cm anterior to the PCL insertion and the notch in the direction of the femoral head. The OrthoAlign device was applied over the pin. It was oriented to be in line with the epicondylar axis and the trochlear groove. It was then pinned into place. The navigation computer was then turned on and calibrated. The distal femur cut was set at 0.5 degrees varus and 3.5 degrees flexion. The distal femur cutting guide then was positioned for a 9mm cut. The distal femur was cut with an oscillating saw while protecting the soft tissues. The tibia was then addressed. The OrthoAlign device was placed over the tibial tubercle and medial tibia and secured into position. Once again, OrthoAlign was calibrated and then set for a 2 degree varus cut and 6 degrees of posterior slope. With this locked into position, the cut thickness stylus was used to assess cut thickness. The medial side, most involved side, was set for a 4mm cut which matched the same laterally, with significant posterior dropoff. This was then held in position and pinned into place with 2 additional pins and a cross pin for stability. The medial and lateral collateral ligaments were protected and the cut was performed. With this completed, it was assessed and noted to be of appropriate dimensions. The guide and OrthoAlign was removed. A spacer block was inserted and the knee was brought into extension to ensure enough space was present. . The Orthoalign gap balancing device was then placed in extension. This was used to ensure that the ligaments were properly balanced with up to 2 to 3 mm laxity laterally compared medially. The extension gap was measured as 18mm. The knee was then brought into 90 degrees of flexion and the ligament customer facilities supervisor was once again placed. Under the same amount of force the flexion gap was measured. The Attune specific jig was placed and the flexion gap was made to match the extension gap. The femur was then sized as a size 8. The 4-in-1 cutting guide was the placed. An milana wing was used to confirm appropriate position of the anterior cut to avoid notching. This cutting guide was ensured to be flush on the cut surface and then pinned into place with headed pins. While protecting the soft tissues, quad tendon, and collateral ligaments, the anterior and posterior cuts were performed with a saw. The central two pins were removed and the posterior and anterior chamfers were cut next. The notch-cutting guide was placed. This was pinned to lateralize the femoral component as much as possible while keeping it flush on the cut surface. This was then pinned into position. A saw was used to make the notch cut. A rasp smoothed the cut surfaces. The medial and lateral menisci were removed. A trial femoral component was then inserted, impacted down to the cut surfaces, and the lug holes were drilled. A provisional trial tibial component was placed and the knee was brought through range of motion. There was noted to be excellent extension and flexion. There was no significant instability. The patella was tracking without thumbs. A size 6mm polyethylene component provided the best range of motion and stability with less than 2mm gapping with medial and lateral stress and full extension without significant hyperextension. The tibial cut surface was fully exposed. The tibia was then sized as a 7. The tibia had been previously marked during trialing to correspond to the center of the tibial component to help with rotation. The trial was aligned to this clemente, approximately rotated to the medial 1/3rd of the tibial tubercle. The trial was pinned into place. The tibia was prepared with a reamer and a keel punch and lug holes. The trial components were removed. The final components were opened on the back table. The periosteal and capsular tissues, especially posteriorly, around the knee were then systematically injected with a periarticular cocktail consisting of 246mg of Ropivacaine, 0.5mg of Epinephrine, 0.08mg of Clonidine, and 30mg of Ketorolac, diluted to 100cc. Then, the knee components were placed. Starting with the tibial component, the tibia was subluxed anteriorly and the lug holes of the component were lined up. The tibia was then impacted with an impactor and mallet until the tibial component was in contact with the tibia. Then, the femoral component was inserted. The lug holes were aligned and the component was impacted into position. The final polyethylene component was inserted. The knee was irrigated with Surgiphor Betadine solution. This was allowed to sit in the knee for 3 minutes and then it was thoroughly irrigated out with saline. The knee was then taken through range of motion. The patella was tracking with a no-thumbs technique. A complete synovectomy of the patella was performed. Any prominence to the lateral facet was resected with a rongeur. The capsule was then reapproximated with a No. 1 Vicryl at multiple locations. The capsule was finally closed with a No. 2 Stratafix, barbed suture. Deep tissues were then reapproximated with 0 Vicryl and 2-0 Vicryl. The skin was closed with a running 3-0 Monocryl in a subcuticular fashion. This was reinforced with skin glue. A Mepilex silver dressing was applied along with a [id number] GEOFF wrap. A CryoCuff was applied. Yo was transferred to the hospital bed without difficulty an suffering no apparent complication. Yo has a good prognosis. Physical therapy will start today and without restrictions, weight-bearing as tolerated. Aspirin 81mg BID will be used for DVT prophylaxis. Date of Procedure: 02/12/25
--- NOTE | 2025-02-12 11:23 | W.ANESPOSTOP ---
Postoperative Evaluation Date, Time and Location Date Performed: 02/12/25 Time Performed: 11:23 Patient Location: PACU Vital Signs Most Recent Imported Vital Signs: Most Recent Vital Signs Temp Pulse Resp BP Pulse Ox 36.5 C 58 L 13 91/67 L 97 02/12/25 08:32 02/12/25 11:18 02/12/25 11:18 02/12/25 11:18 02/12/25 11:18 Pain Score Most Recent Pain Score: Most Recent Pain Score Pain Level 0 02/12/25 07:56 Assessment Mental Status: Awake (Alert & Oriented to Patient Baseline) Airway and Respiratory Function: Patent airway with normal (patient baseline) respiratory exam Cardiovascular Function: Hemodynamically Stable Hydration Status: Adequately Hydrated Nausea & Vomiting: No Nausea or Vomiting Pain: Pain is tolerable per patient (spinal still waning. ) Peripheral Nerve Block: Regional nerve block not resolved at time of post operative discharge
[2025-02-12] MEDS: Tranexamic Acid 650 MG TAB 1300 MG PO (12:19)
--- NOTE | 2025-02-12 12:22 | IN_ITS ---
PT Notes Visit Reasons: Right knee DJD Physical Therapy Day Surgery Initial Evaluation Date: 02/12/2025 Referring Doctor: Precious Shah, PRESIDENT AND CHIEF OPERATING OFFICER/Dr. Martínez PT Orders: PT CONSULT: Status post Ortho surgery Precautions: WBAT RLE Patient Profile/Admitting Diagnosis: Yo is a 74-year-old male presenting statu s post elective right TKA under spinal/nerve block on 02/12/[address] Martínez. Postop uncomplicated. PMHX: Degenerative joint disease of right knee (Chronic) Osteoarthritis of knees, bilateral (Chronic) Asymmetrical sensorineural hearing loss (Acute) concern for possible acoustic neuromaPenile adhesion, acquired (Acute) Rosacea (Acute) of face Medical History (Updated 02/04/25 @ 09:50 by Precious Shah) Seborrheic dermatitis (12/08/16) 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) Diverticula of colon (06/09/16) Spermatocele (02/03/16) Carpal tunnel syndrome, bilateral Surgical History (System 07/11/23 @ 14:34 by Lena Christine) History of arthroscopy Status post tonsillectomy Social History/Home Situation: Pt resides with in 2 story home with steps to enter with B rails. Pt has FOS with left rail to bedroom and bathroom. 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 He will be limiting work to office until cleared by Dr Martínez to return to jobsite. Pt drives. Independent ADL, ambulation. finances. Equipment Owned/DME: fitted for FWW, grab bar in shower Subjective: Yo states he is feeling good and hopeful to be going home soon. Pt reports his right calf feels like it wants to be stretched out.[ pt able to perform active DF stretch. supine and in sit] Objective: [] General Observation: semireclined on stretcher, cryocuff to right knee; at bedside Mental Status:A+OX4 able to follow instructions, cooperative, agreeable to participate Pain: knee 3/10 ROM: [] Right Upper Extremity: WNL Left Upper Extremity:WNL Right Lower Extremity: knee 0-111 active hip and ankle WNL Left Lower Extremity:WNL Strength: [] Right Upper Extremity: 5/5 Left Upper Extremity: 5/5 Right Lower Extremity: Hip flexion: 3 /5; hip abduction:3 /5; hip extension: 3 /5; knee extension: 3/5; knee flexion: 3- /5 ankle DF: >/= to 3 /5 ; ankle PF: >/=to 3 /5; strong Quad set able to perform SLR without lag Left Lower Extremity: 5/5 Sensation: intact to pain and touch Bed Mobility/Transfers: [] Supine to sit independent Sit to stand supervision Stand to sit supervision Bed to chair supervision with FWW Gait: amb with FWW 160 feet with reciprocal pattern with intermittent cues for quad activation Right to improve stability. Stairs: 5 steps with B rails SBA and cues for sequencing Balance: [] Static Sitting: Normal Dynamic Sitting: Good Static Standing: Good Dynamic Standing: Fair + Special Tests: [] Mobility Limitations Standardized Measure [] [facility] AM-PAC 6 clicks Basic Mobility Inpatient Short Form: [] Raw Score:23 CMS Score:11.20% Informed Consent/Education: Patient instructed in purpose of PT consult. Treatment: 58449 packet containing TKA exercise protocol has been given to patient. Education and training on initial set of 10 reps of exercises that can be done at home have been completed with patient. [id number] transfer from various surfaces chair bed , toilet with FWW SBA cues for hand placement. stair training with 1 rail 5 steps x 2 with CGA and continuous cues for sequencing. His was educated and instructed in sequencing. She is able to provide sequencing cues for stair management. Assessment: Patient is a 74 yo male who presents with clinical signs and symptoms consistent with current/admitting diagnoses that have resulted to mobility limitations, gait instability, generalized weakness, and impairment of motor control as demonstrated by the following impairment level findings: 1. Decreased strength to right knee major muscle groups 2. Impaired standing balance 3. Limitation of joint range of motion in right knee 4. Pain in right knee Impairments are contributing to the following functional limitations: 1. Inability to safely ambulate without assistive device 2. Increase completion time for mobility ADL performance 3. Increased fall risk 4. difficulty performing stairs without assistance Patient is assessed as a moderate complexity based on the following: History:74-year-old male with impairment level findings, functional limitations, and past medical history as indicated above Examination: Demonstrable impairment in strength, balance, and mobility level with underlying impairments and functional limitations as documented above Presentation: stable/evolving Decision Making: moderate Goals: N/A. PT evaluation and 1-2 treatment sessions only for functional mobility training using recommended AD and for HEP instruction. Plan of Care/Treatment Plan: N/A. PT evaluation and 1-2 treatment session only for functional mobility training using recommended AD and for HEP instruction. DISCHARGE RECOMMENDATIONS: Home with HEP and outpatient PT as scheduled TREATMENT CODE/TIME: 04491, [id number], [id number]/ [id number] Thank you for the opportunity to participate in the care of this patient. Desire Triplett, PT [facility]
== END 2025-02-12 14:00 | disposition home or self-care (01) ==
PROVIDERS: PCP Family Medicine; Visit Provider Student in an Organized Health Care Education/Training Program
PROC: (CPT 27447; principal; 2025-02-12 09:15)
DX: M17.11 Unilateral primary osteoarthritis, right knee (principal); G89.18 Other acute postprocedural pain
CPT/HCPCS: 20985; 27447; 64447; 97110; 97162; 97530; C1776; J0665; J0690; J1100; J2401; J2405

== ENCOUNTER 2025-02-25 10:15 | Outpatient (CLI) | payer MEDICARE, OTHER, SELFPAY ==
--- NOTE | 2025-02-25 10:30 | DI.RAD_ITS ---
Exam(s) XR KNEE RT 1V XR STANDING ALIGNMENT EXAM: XR STANDING ALIGNMENT CLINICAL HISTORY: 1ST POST OP S/P R TKA. TECHNIQUE: 2D digital imaging was performed. Standing AP views were performed from the pelvis through the ankles. COMPARISON: CR XR STANDING ALIGNMENT from 11/08/2024 CR XR KNEE RT 1V from 02/25/2025 FINDINGS: BONES: No acute fracture is present. No bony destructive lesion is seen. Leg length discrepancy: No significant overall leg length discrepancy. JOINTS: Knees: Status post placement of right total knee prosthesis. The alignment appears satisfactory. There again noted to be severe degenerative changes of the left knee, greater medially. Ankles: There is narrowing of the medial tibiotalar joint space the left ankle. The hip joints show mild degenerative changes. SOFT TISSUE: Anterior soft tissue swelling at the knee. IMPRESSION: Status post placement of right knee prosthesis. Severe degenerative changes of the left knee. No significant leg length discrepancy. DATA REPOSITORY: RADIATION DOSE DELIVERED:
== END 2025-02-25 10:16 | disposition home or self-care (01) ==
LOC: DIORS 10:16
PROVIDERS: PCP Family Medicine; Visit Provider Physician Assistant
DX: Z47.1 Aftercare following joint replacement surgery (principal); Z96.651 Presence of right artificial knee joint; M76.31 Iliotibial band syndrome, right leg
CPT/HCPCS: 99213; 73560; 77073

== ENCOUNTER → 2025-03-25 13:25 | Outpatient (BNVA) | payer MEDICARE, OTHER, SELFPAY | PROVIDERS: PCP Family Medicine; Referring Provider Family Medicine; Visit Provider Physician Assistant | DX: Z47.1 Aftercare following joint replacement surgery (principal); Z96.651 Presence of right artificial knee joint | CPT/HCPCS: 99024 ==

== ENCOUNTER 2025-04-17 20:50 | Outpatient (REF) | payer MEDICARE, OTHER, SELFPAY | END 2025-04-17 20:51 | disposition home or self-care (01) | LOC: LBN 20:50 | PROVIDERS: PCP Family Medicine; Visit Provider Physician Assistant Medical | DX: J02.9 Acute pharyngitis, unspecified (principal) | CPT/HCPCS: 87070 ==

== ENCOUNTER → 2025-05-06 13:06 | Outpatient (BNVA) | payer MEDICARE, OTHER, SELFPAY | PROVIDERS: PCP Family Medicine; Referring Provider Family Medicine; Visit Provider Student in an Organized Health Care Education/Training Program | DX: Z47.1 Aftercare following joint replacement surgery (principal); Z96.651 Presence of right artificial knee joint | CPT/HCPCS: 99024 ==